=== PATIENT | male | born 1980 | race Caucasian/White ===

== ENCOUNTER 2022-07-12 18:16 | Emergency (ER) | payer BC ==
[~2022-07-12 18:16] MED LIST: OXYCODON-ACETA1 EAC1 PO; ZOFRAN 4 MG TAB4 MG PO
[2022-07-12 19:29] LABS: HEMOGLOBIN 15.7 gm/dl (14.0-17.5); RED BLOOD COUNT 4.91 M/UL (4.20-5.50); WHITE BLOOD COUNT 10.7 K/UL (4.5-11.0)
[2022-07-12 19:59] LABS: BUN/CREATININE RATIO 14 (0-10)
[2022-07-12] MEDS ORDERED: OMEPRAZOLE20 MG PO (21:47)
[2022-07-12] MEDS ORDERED: KRISTALOSE20 GM PO (21:47)
[2022-07-12] MEDS ORDERED: CITRATE OF MAG296 ML PO (21:47)
[2022-07-12] MEDS ORDERED: BENTYL 20MG TAB20 MG PO (21:47)
== END 2022-07-12 22:12 | disposition home or self-care (01) ==
LOC: ER1 18:16
PROVIDERS: Student in an Organized Health Care Education/Training Program
DX: K59.00 Constipation, unspecified (principal); K29.80 Duodenitis without bleeding
CPT/HCPCS: 80053; 81001; 83690; 85025; 99284; Q9967